=== PATIENT | female | born 1990 | race Caucasian/White ===

== ENCOUNTER → 2022-11-30 09:54 | Outpatient (BNVA) | payer BC, SELFPAY | PROVIDERS: PCP Nurse Practitioner Family; Visit Provider Nurse Practitioner | DX: I10 Essential (primary) hypertension (principal); E28.2 Polycystic ovarian syndrome | CPT/HCPCS: 80053; 80061; 84443; 85025 ==

== ENCOUNTER → 2022-12-10 09:12 | Outpatient (BNVA) | payer BC, MEDICAID, SELFPAY | PROVIDERS: PCP Nurse Practitioner Family; Visit Provider Nurse Practitioner | DX: R79.89 Other specified abnormal findings of blood chemistry (principal) | CPT/HCPCS: 85025 ==

== ENCOUNTER → 2023-01-10 08:13 | Outpatient (BNVA) | payer BC, MEDICAID, SELFPAY | PROVIDERS: PCP Nurse Practitioner Family; Visit Provider Obstetrics & Gynecology | DX: E28.2 Polycystic ovarian syndrome (principal) | CPT/HCPCS: 83525 ==

== ENCOUNTER → 2023-01-24 08:04 | Outpatient (BNVA) | payer BC, MEDICAID, SELFPAY | PROVIDERS: PCP Nurse Practitioner Family; Visit Provider Obstetrics & Gynecology | DX: E28.2 Polycystic ovarian syndrome (principal) | CPT/HCPCS: 83036; 84443 ==

== ENCOUNTER 2023-02-01 12:40 | Emergency (ER) | payer BC, MEDICAID, SELFPAY ==
[2023-02-01] VITALS (7 sets, daily range): BP systolic 136–169; BP diastolic 97–112; PULSE 71–75; RESP 16; TEMP 36.6; O2SAT 96–100; BMI 52.3
--- NOTE | 2023-02-01 14:19 | W.ED.ABDPA2 ---
HPI - Abdominal Pain General: Chief Complaint: Abdominal Pain Stated Complaint: possible urogenital Time Seen by Provider: 02/01/23 14:18 Source: patient Mode of arrival: ambulatory History of Present Illness: 32-year-old female presents emergency room complaining of left lower quadrant abdominal pain has been ongoing since around 10 AM this morning initially was coming and going this become more persistent. She notices it when she lays down prone it actually improves it comes and goes in waves. She denies vomiting or diarrhea no hematochezia melena hematemesis cough tenderness no dysuria urgency or frequency no hematuria. Patient has a history of polycystic ovarian syndrome. MD elicited complaint: abdominal pain Onset (ago): hour(s) Pain Consistency: constant Location: L flank and Pelvis (L) Severity: moderate Quality: cramping and sharp Exacerbating factors: nothing Relieving factors: other (Lying prone) Associated Symptoms: Reports GI cramping and nausea; Denies anorexia, belching, bloating, change in bowel habits, change in stool character, chills, coffee ground emesis, constipation, diarrhea, dyspepsia, dysuria, excessive flatus, fever(s), heartburn, hematochezia, hematuria, hematemesis, fecal incontinence, loose stools, melena, poor appetite, syncope and vomiting Review of Systems Const: Denies: fever(s) or chills ENMT: Denies: throat pain, ear or mastoid pain, nasal discharge or nasal congestion Card: Denies: chest pain or syncope Resp: Denies: dyspnea, productive cough or non-productive cough GI: Reports: abdominal pain, nausea and GI cramping; Denies: vomiting, hematemesis, coffee ground emesis, heartburn, diarrhea, constipation, bloating, belching, excessive flatus, fecal incontinence, change in bowel habits, change in stool character, hematochezia or melena : Denies: dysuria, urinary frequency, urinary urgency or hematuria Skin/Breast: Denies: rash or pruritus PFSH ED PFSH: Medical History Asthma COPD (chronic obstructive pulmonary disease) Hypertension PCOS (polycystic ovarian syndrome) Surgical History Status post tonsillectomy and adenoidectomy Family History Mother Hypertension Diabetes Father Hypertension Diabetes Grandfather Hypertension Diabetes Grandfather Hypertension Diabetes Grandmother Hypertension Diabetes Grandmother Hypertension Diabetes Denies family history of Cervical cancer Ovarian cancer Breast cancer Uterine cancer Thyroid disease Stroke Physical Exam Const: COMMON NORMALS: no acute distress GENERAL APPEARANCE: cooperative and comfortable ORIENTATION/CONSCIOUSNESS: Yes awake, Yes oriented to person, Yes oriented to place and Yes oriented to time HENMT: COMMON NORMALS: normocephalic, atraumatic and hearing grossly normal bilaterally HEAD & SCALP: normocephalic and atraumatic Resp: COMMON NORMALS: normal respiratory effort, No retractions, No use of accessory muscles and clear to auscultation bilaterally AUSCULTATION: clear to auscultation bilaterally Cardio: COMMON NORMALS: regular rate, regular rhythm and No murmurs present (Cardio) RATE: regular rate RHYTHM: regular rhythm GI: COMMON NORMALS: Soft to palpation and No hepatosplenomegaly present AUSCULTATION: Yes normoactive bowel sounds PALPATION: Yes Soft to palpation, No Tenderness to palpation present (GI), No Guarding due to palpation present (GI) and Yes No hepatosplenomegaly present Extremity: COMMON NORMALS: normal to inspection, capillary refill normal, no clubbing, cyanosis or edema, no calf tenderness and no pedal edema Neuro: SENSORIUM/ORIENTATION: Yes oriented to person, Yes oriented to place and Yes oriented to time Skin: COMMON NORMALS: no rashes or lesions noted GENERAL SKIN EXAM: no rashes or lesions noted Course Vital Signs: Vital signs: Vital Signs Temperature 97.9 F 02/01/23 13:18 Pulse Rate 74 02/01/23 17:58 Respiratory Rate 16 02/01/23 13:18 Blood Pressure 169/110 02/01/23 17:58 Pulse Oximetry 100 02/01/23 17:58 Oxygen Delivery Me thod Room Air 02/01/23 13:18 MDM - Abdominal Pain Medical Decision Making CT shows 15 cm ovarian cyst ultrasound there is no ovarian torsion. Patient improved slightly. She has an appointment coming up with Dr. Navarrete in 3 to 4 days. Avoid exertional activities pain medications as needed follow-up with Dr. Navarrete has worsening or changes symptoms return to the emergency room. Labs and imaging reviewed with the patient. Medical Records I reviewed the patient's medical records. Lab Data I reviewed the patient's lab results. 02/01/23 14:38 02/01/23 14:38 Labs/Radiology: Radiology Impressions Abdomen/Pelvis CT 02/01/23 14:41 IMPRESSION: Dominant left adnexal/para ovarian cyst measuring over 15 cm in size. Due to its large size this places patient at risk for ovarian torsion. Therefore, would recommend follow-up ultrasound and surgical consultation would also be advised. Pelvic/Transvag US 02/01/23 16:37 IMPRESSION: Redemonstrated left paraovarian cyst measuring 15 cm in size. No ovarian torsion. Laboratory Results WBC 9.9 10^3/uL (4.0-10.0) 02/01/23 14:38 RBC 5.19 10^6/uL (4.1-5.3) 02/01/23 14:38 Hgb 15.5 g/dL (11.5-15.3) H 02/01/23 14:38 Hct 47.8 % (37.0-47.0) H 02/01/23 14:38 MCV 92.1 fl (81-99) 02/01/23 14:38 MCH 29.9 pg (28.0-34.0) 02/01/23 14:38 MCHC 32.4 g/dL (30.0-36.0) 02/01/23 14:38 RDW 12.9 % (12.1-15.1) 02/01/23 14:38 Plt Count 476 10^3/cmm (130-400) H 02/01/23 14:38 MPV 9.8 fL (7.4-10.4) 02/01/23 14:38 Neut % (Auto) 64.5 % 02/01/23 14:38 Lymph % (Auto) 26.5 % 02/01/23 14:38 [place] % (Auto) 4.0 % 02/01/23 14:38 Eos % (Auto) 4.3 % 02/01/23 14:38 Baso % (Auto) 0.5 % 02/01/23 14:38 Neut # (Auto) 6.40 10^3/uL (1.8-7.7) 02/01/23 14:38 Lymph # (Auto) 2.6 10^3/uL (0.8-4.8) 02/01/23 14:38 [place] # (Auto) 0.4 10^3/uL (0.2-0.9) 02/01/23 14:38 Eos # (Auto) 0.4 10^3/uL (0.0-0.8) 02/01/23 14:38 Baso # (Auto) 0.1 10^3/uL (0.0-0.1) 02/01/23 14:38 Nucleated RBC % (auto) 0 % 02/01/23 14:38 Nucleated RBCs # 0.0 /100WBC 02/01/23 14:38 Sodium 138 mmol/L (136-145) 02/01/23 14:38 Potassium 3.8 mmol/L (3.5-5.1) 02/01/23 14:38 Chloride 101 mmol/L (98-107) 02/01/23 14:38 Carbon Dioxide 25 mmol/L (22-29) 02/01/23 14:38 Anion Gap 15.8 (5-19) 02/01/23 14:38 BUN 12 mg/dL (6-20) 02/01/23 14:38 Creatinine 0.6 mg/dL (0.5-0.9) 02/01/23 14:38 GFR Calculation 116.6 mL/min (90-130) 02/01/23 14:38 Glucose 78 mg/dL (65-115) 02/01/23 14:38 Calculated Osmolality 285 mOsm/kg (285-295) 02/01/23 14:38 Calcium 9.6 mg/dL (8.5-10.5) 02/01/23 14:38 Total Bilirubin 0.3 mg/dL (0.15-1.2) 02/01/23 14:38 AST 32 U/L (0-32) 02/01/23 14:38 ALT 40 U/L (0-33) H 02/01/23 14:38 Alkaline Phosphatase 59 U/L (35-105) 02/01/23 14:38 Total Protein 8.2 g/dL (6.6-8.7) 02/01/23 14:38 Albumin 4.6 g/dL (3.5-5.2) 02/01/23 14:38 Globulin 3.6 g/dL (1.3-4.6) 02/01/23 14:38 Urine Color Yellow (Yellow) 02/01/23 14:25 Urine Appearance Clear (CLEAR) 02/01/23 14:25 Urine pH 5 (5-7) 02/01/23 14:25 Ur Specific [place] 1.015 (1.005-1.030) 02/01/23 14:25 Urine Protein Neg (Negative) 02/01/23 14:25 Urine Glucose (UA) Norm (Normal) 02/01/23 14:25 Urine Ketones Negative (Negative) 02/01/23 14:25 Urine Blood 3+ (Negative) H 02/01/23 14:25 Urine Nitrate Negative (Negative) 02/01/23 14:25 Urine Bilirubin Neg (Negative) 02/01/23 14:25 Urine Urobilinogen Norm mg/dL (Negative) 02/01/23 14:25 Ur Leukocyte Esterase Negative (Negative) 02/01/23 14:25 Urine RBC 5-10 /hpf (0-2) H 02/01/23 14:25 Urine WBC 0-4 /hpf (0-5) H 02/01/23 14:25 Ur Squamous Epith Cells 15-25 /hpf (0-5) H 02/01/23 14:25 Amorphous Sediment Not Reportable 02/01/23 14:25 Urine Bacteria Trace /hpf (NONE) 02/01/23 14:25 Discharge Plan Discharge Patient Disposition: Home Clinical Impression: Cyst of left ovary Condition: Stable Prescriptions: New hydrocodone-acetaminophen 5-325 mg tablet 1 tab PO Q6H PRN (Reason: pain) Qty: 20 0RF ondansetron HCl 4 mg tablet 4 mg PO Q6H PRN (Reason: nausea and vomiting) Qty: 20 0RF No Action promethazine-DM 6.25-15 mg/5 mL syrup 5 ml PO Q6H PRN (Reason: cough) Qty: 473 0RF medroxyprogesterone [Provera] 10 mg tablet 10 mg PO DAILY Qty: 30 5RF Rx Instructions: Take 1-10th of month. NOT STARTED OF 02/01/23 Aleve 220 mg Tablet 440 - 880 mg PO DAILY PRN (Reason: Pain) spironolactone 100 mg tablet 100 mg PO QAM lisinopril 10 mg tablet 10 mg PO QAM metformin 500 mg tablet extended release 24 hr See Rx Instructions .ROUTE .COMPLEX Rx Instructions: Take one tab (500mg) daily, then increase to 2 tabs (1,000mg) daily after 30 days Combivent Respimat 20-100 mcg/actuation mist 1 puff inhalation QID PRN (Reason: Shortness Of Breath) Discharge Orders: Discharge ED (Routine); Ordered 02/01/23 Ordered By: Archie Melton Referrals: Emely Rivera FNP [Primary Care Provider] - Discharge Diet: Usual diet Discharge Activity: Limit activity as instructed Patient Instructions: Opioid Safety, Pain Management Activity Restrictions/Additional Instructions: You are seen today for pelvic pain there is a large left ovarian cyst. Keep your appoint with Dr. Navarrete as scheduled for worsening symptoms return avoid any exertional activities you can use the hydrocodone for pain as needed. Coding Level of Care Code ED [employer] T[employer] Helper for Imer Trejo
[2023-02-01] MEDS: sodium chloride 0.9% 1,000 ML 999 ML IV (14:40)
--- NOTE | 2023-02-01 14:41 | CTR_ITS ---
PROCEDURE INFORMATION: Exam: CT Abdomen And Pelvis Without Contrast Exam date and time: 02/01/2023 4:07 PM Age: 32 years old Clinical indication: Abdominal tenderness; Additional info: Flank pain TECHNIQUE: Imaging protocol: Computed tomography of the abdomen and pelvis without contrast. Radiation optimization: All CT scans at this facility use at least one of these dose optimization techniques: automated exposure control; mA and/or kV adjustment per patient size (includes targeted exams where dose is matched to clinical indication); or iterative reconstruction. REPORTING DATA: Count of CT and Cardiac NM exams in prior 12 months: This patient has received 0 known CTs and 0 known cardiac nuclear medicine studies in the 12 months prior to the current study. COMPARISON: No relevant prior studies available. RADIATION DOSE METRICS: Total DLP (mGy-cm): 1278.63 FINDINGS: Liver: Normal. No mass. Gallbladder and bile ducts: Normal. No calcified stones. No ductal dilation. Pancreas: Normal. No ductal dilation. Spleen: Normal. No splenomegaly. Adrenal glands: Normal. No mass. Kidneys and ureters: Normal. No hydronephrosis. Stomach and bowel: Unremarkable. No obstruction. No mucosal thickening. Appendix: No evidence of appendicitis. Intraperitoneal space: Unremarkable. No free air. No significant fluid collection. Vasculature: Unremarkable. No abdominal aortic aneurysm. Lymph nodes: Unremarkable. No enlarged lymph nodes. Urinary bladder: Unremarkable as visualized. Reproductive: There is a dominant left adnexal/para ovarian simple appearing cyst measuring 15.5 x 12.6 x 14.6 cm. Bones/joints: No acute fracture. Soft tissues: Unremarkable. CT/CT kidney stone [id number] IMPRESSION: Dominant left adnexal/para ovarian cyst measuring over 15 cm in size. Due to its large size this places patient at risk for ovarian torsion. Therefore, would recommend follow-up ultrasound and surgical consultation would also be advised.
[2023-02-01] MEDS: ondansetron 2 mg/ML SDV 2 mL 4 MG IVP (14:42)
[2023-02-01 14:48] LABS: Basophils # 0.1 10^3/uL (0.0-0.1); Basophils % 0.5 %; Eosinophils # 0.4 10^3/uL (0.0-0.8); Eosinophils % 4.3 %; Hematocrit 47.8 % (37.0-47.0); Hemoglobin 15.5 g/dL (11.5-15.3); Lymphocytes # 2.6 10^3/uL (0.8-4.8); Lymphocytes % 26.5 %; Mean Corpuscular HGB Conc 32.4 g/dL (30.0-36.0); Mean Corpuscular Hemoglobin 29.9 pg (28.0-34.0); Mean Corpuscular Volume 92.1 fl (81-99); Mean Platelet Volume 9.8 fL (7.4-10.4); Monocytes # 0.4 10^3/uL (0.2-0.9); Neutrophils % 64.5 %; Nucleated Red Blood Cells % 0 %; Platelet Count 476 10^3/cmm (130-400); Red Blood Count 5.19 10^6/uL (4.1-5.3); Red Cell Distribution Width 12.9 % (12.1-15.1); White Blood Count 9.9 10^3/uL (4.0-10.0)
[2023-02-01 15:15] LABS: Alanine Aminotransferase 40 U/L (0-33); Albumin Level 4.6 g/dL (3.5-5.2); Alkaline Phosphatase 59 U/L (35-105); Anion Gap 15.8 (5-19); Aspartate Amino Transferase 32 U/L (0-32); Blood Urea Nitrogen 12 mg/dL (6-20); Calcium 9.6 mg/dL (8.5-10.5); Carbon Dioxide 25 mmol/L (22-29); Chloride 101 mmol/L (98-107); Globulin 3.6 g/dL (1.3-4.6); Glomerular Filtration Rate 116.6 mL/min (90-130); Glucose 78 mg/dL (65-115); Osmolality Calculated 285 mOsm/kg (285-295); Potassium 3.8 mmol/L (3.5-5.1); Sodium 138 mmol/L (136-145); Total Bilirubin 0.3 mg/dL (0.15-1.2); Total Protein 8.2 g/dL (6.6-8.7)
[2023-02-01 15:15] LABS: Add Urine Microscopic? YES; Bilirubin Urine Neg (Negative); Blood Urine 3+ (Negative); Glucose Urine UA Norm (Normal); Ketones Urine Negative (Negative); Leukocyte Esterase Urine Negative (Negative); Nitrate Urine Negative (Negative); Protein Urine Neg (Negative); Specific Gravity, Urine 1.015 (1.005-1.030); Urine Appearance Clear (CLEAR); Urine Color Yellow (Yellow); Urobilinogen Urine Norm (Negative); pH Urine 5 (5-7)
[2023-02-01 15:16] LABS: Add Urine Culture? No; Bacteria Urine TRACE /hpf; Squamous Epithelial Cell Urine 15-25 /hpf (0-5); WBC Urine 0-4 /hpf (0-5)
--- NOTE | 2023-02-01 16:37 | USR_ITS ---
PROCEDURE INFORMATION: Exam: US Pelvis Limited, Transabdominal and US Pelvis, Transvaginal Exam date and time: 02/01/2023 4:52 PM Age: 32 years old Clinical indication: Pelvic pain; Additional info: 15 cm left ovarian cyst? Ovarian torsion TECHNIQUE: Imaging protocol: Real-time transabdominal and transvaginal pelvic ultrasound (limited) with image documentation. Transvaginal imaging was used for better evaluation of the endometrium, adnexa, and/or cervix. COMPARISON: CT kidney stone [id number] 02/01/2023 4:07 PM FINDINGS: Uterus: Limited visualization due to overlying bowel gas/soft tissues. Right ovary/adnexa: Right ovary not visualized on exam. Left ovary/adnexa: Redemonstrated left simple appearing paraovarian cyst measuring up to 15 cm in size. Normal blood flow to the left ovary. Other findings: Please note, on ultrasound examination the cyst is labeled right ovary. On CT, it is better visualized that the cyst is within the left adnexa/paraovarian in origin. US/US pelvis lmt w transvag IMPRESSION: Redemonstrated left paraovarian cyst measuring 15 cm in size. No ovarian torsion.
[2023-02-01] MEDS: HYDROmorphone 1 mg/mL INJ 1 mL 0.5 MG IVP (17:29)
[2023-02-01] MEDS: diphenhydrAMINE 50 mg/mL SDV 1mL 25 MG IVP (17:29)
== END 2023-02-01 18:01 | disposition home or self-care (01) ==
PROVIDERS: Emergency Provider Family Medicine; PCP Nurse Practitioner
DX: N83.202 Unspecified ovarian cyst, left side (principal)
CPT/HCPCS: 74176; 76830; 76857; 80053; 81001; 85025; 96361; 96374; 96375; 99285; J1170; J1200; J2405; J7030

== ENCOUNTER 2023-02-11 09:06 | Observation (INO) | payer BC, MEDICAID, SELFPAY ==
[2023-02-11] VITALS (17 sets, daily range): BP systolic 124–198; BP diastolic 76–132; PULSE 64–107; RESP 12–20; TEMP 36.6–36.8; O2SAT 94–100
--- NOTE | 2023-02-11 09:19 | US_ITS ---
WS: [id number] US transvaginal [id number] HISTORY: ovarian cyst COMPARISON: Pelvic ultrasound 02/01/[address] 02/01/2023 Uterus: 6.8 cm x 5.0 cm x 4.0 cm. Normal size retroverted uterus. No fibroid or mass identified. Endometrium: 0.9 cm. Normal. Right ovary: 3.6 cm x 2.9 cm x 2.4 cm. Normal size and vascularity, no cystic or solid masses. Normal size with small peripheral follicles. Normal vascularity. Left ovary: 5.6 cm x 4.0 cm x 5.3 cm. Mildly enlarged ovary. Ovary is of variable echogenicity. There is increased echogenicity centrally with small peripheral follicles being displaced. The previously described LEFT adnexal cystic mass is not identified. There is no vascularity or color Doppler. Free fluid in the pelvis is more than physiologic. There is also additional free fluid in the LEFT up per quadrant. US/US transvaginal [id number] IMPRESSION: 1. The large adnexal cystic mass described on 02/01/2023 is not identified today . 2. Increase fluid in the pelvis and also LEFT upper quadrant. Fluid is from th e acutely ruptured ovarian cyst. 3. Enlarged heterogeneous LEFT ovary with normal vascularity. Consistent with ovarian torsion. Notified Archie Melton DO at 02/11/2023 11:48 AM.
[2023-02-11] MEDS: diphenhydrAMINE 50 mg/mL SDV 1mL IVP (10:00)
[2023-02-11] MEDS: morphine 4 mg/mL SDV 1 mL 6 MG IVP ×2 (10:00→12:19)
[2023-02-11 10:03] LABS: Basophils % 0.4 %; Eosinophils # 0.1 10^3/uL (0.0-0.8); Eosinophils % 0.5 %; Hematocrit 50.7 % (37.0-47.0); Hemoglobin 16.5 g/dL (11.5-15.3); Lymphocytes # 1.5 10^3/uL (0.8-4.8); Lymphocytes % 13.1 %; Mean Corpuscular HGB Conc 32.5 g/dL (30.0-36.0); Mean Corpuscular Hemoglobin 29.8 pg (28.0-34.0); Mean Corpuscular Volume 91.5 fl (81-99); Mean Platelet Volume 10.1 fL (7.4-10.4); Monocytes # 0.3 10^3/uL (0.2-0.9); Monocytes % 2.9 %; Neutrophils # 9.17 10^3/uL (1.8-7.7); Neutrophils % 82.7 %; Nucleated Red Blood Cells % 0 %; Platelet Count 512 10^3/cmm (130-400); Red Blood Count 5.54 10^6/uL (4.1-5.3); Red Cell Distribution Width 12.9 % (12.1-15.1); White Blood Count 11.1 10^3/uL (4.0-10.0)
[2023-02-11 10:20] LABS: Alanine Aminotransferase 32 U/L (0-33); Albumin Level 4.6 g/dL (3.5-5.2); Alkaline Phosphatase 61 U/L (35-105); Blood Urea Nitrogen 19 mg/dL (6-20); Calcium 10.5 mg/dL (8.5-10.5); Carbon Dioxide 23 mmol/L (22-29); Chloride 97 mmol/L (98-107); Globulin 3.8 g/dL (1.3-4.6); Glomerular Filtration Rate 97.6 mL/min (90-130); Glucose 110 mg/dL (65-115); HCG, Serum Qual Negative (Negative); Osmolality Calculated 279 mOsm/kg (285-295); Sodium 133 mmol/L (136-145); Total Bilirubin 0.3 mg/dL (0.15-1.2); Total Protein 8.4 g/dL (6.6-8.7)
--- NOTE | 2023-02-11 10:23 | ED_ITS ---
HPI - Abdominal Pain General: Chief Complaint: Abdominal Pain Stated Complaint: ovarian pain Time Seen by Provider: 02/11/23 09:11 Source: patient Mode of arrival: ambulatory History of Present Illness: 32-year-old female presents to the emergency room with left-sided pelvic pain. She was seen on February 01 at that time she was having pelvic discomfort CT and ultrasound showed a 15 cm ovarian cyst with good blood flow to the ovary. She is given pain medication and referred to gynecology gynecology has seen her and has scheduled surgery in 2 days. She returns today complaining of worsening left-sided pelvic pain. She denies dysuria urgency or frequency or hematuria. Has been nauseous but no vomiting. MD elicited complaint: other (Left pelvic pain) Pertinent past history: other (Ovarian cyst 15 cm) Onset (ago): hour(s) Pain Consistency: constant Location: Pelvis Severity: severe Quality: cramping Exacerbating factors: movement Relieving factors: rest Associated Symptoms: Denies anorexia, belching, bloating, change in bowel habits, change in stool character, chills, coffee ground emesis, constipation, GI cramping, diarrhea, dyspepsia, dysuria, excessive flatus, fever(s), heartburn, hematochezia, hematuria, hematemesis, fecal incontinence, loose stools, melena, nausea, poor appetite, syncope and vomiting Review of Systems Const: Denies: fever(s) or chills ENMT: Denies: throat pain, ear or mastoid pain, nasal discharge or nasal congestion Card: Denies: syncope Resp: Denies: dyspnea, productive cough or non-productive cough GI: Denies: nausea, vomiting, hematemesis, coffee ground emesis, heartburn, diarrhea, constipation, bloating, GI cramping, belching, excessive flatus, fecal incontinence, change in bowel habits, change in stool character, hematochezia or melena : Denies: dysuria, urinary frequency, urinary urgency or hematuria Skin/Breast: Denies: rash or pruritus PFSH ED PFSH: Medical History Asthma COPD (chronic obstructive pulmonary disease) Hypertension PCOS (polycystic ovarian syndrome) Surgical History Status post tonsillectomy and adenoidectomy Family History Mother Hypertension Diabetes Father Hypertension Diabetes Grandfather Hypertension Diabetes Grandfather Hypertension Diabetes Grandmother Hypertension Diabetes Grandmother Hypertension Diabetes Denies family history of Cervical cancer Ovarian cancer Breast cancer Uterine cancer Thyroid disease Stroke Physical Exam Const: GENERAL APPEARANCE: cooperative and comfortable ORIENTATION/CONSCIOUSNESS: Yes awake, Yes oriented to person, Yes oriented to place and Yes oriented to time HENMT: COMMON NORMALS: normocephalic, atraumatic and hearing grossly normal bilaterally HEAD & SCALP: normocephalic and atraumatic Resp: COMMON NORMALS: normal respiratory effort, No retractions, No use of accessory muscles and clear to auscultation bilaterally AUSCULTATION: clear to auscultation bilaterally Cardio: COMMON NORMALS: regular rate, regular rhythm and No murmurs present (Cardio) RATE: regular rate RHYTHM: regular rhythm GI: COMMON NORMALS: No hepatosplenomegaly present AUSCULTATION: Yes normoac tive bowel sounds PALPATION: Yes Tenderness to palpation present (GI) Det ails: LLQ, No Guarding due to palpation present (GI) and Yes No hepatosplenomegaly present : COMMON NORMALS: Yes no CVA tenderness BLADDER/KIDNEY EXAM: Yes no CVA tenderness Back/Pelvis: COMMON NORMALS: no CVA tenderness Extremity: COMMON NORMALS: normal to inspection, capillary refill normal, no clubbing, cyanosis or edema, no calf tenderness and no pedal edema Neuro: SENSORIUM/ORIENTATION: Yes oriented to person, Yes oriented to place and Yes oriented to time Skin: COMMON NORMALS: no rashes or lesions noted GENERAL SKIN EXAM: no rashes or lesions noted Course Vital Signs: Vital signs: Vital Signs Temperature 97.9 F 02/11/23 09:14 Pulse Rate 100 02/11/23 14:26 Respiratory Rate 16 02/11/23 14:26 Blood Pressure 179/126 02/11/23 14:26 Pulse Oximetry 99 02/11/23 14:26 Oxygen Delivery Me thod Room Air 02/11/23 14:26 MDM - Abdominal Pain Medical Decision Making No blood flow in the ovary cyst is no longer present fluid in the pelvis suspect cyst has ruptured and the ovary is now torsed discussed with gynecology Dr. Johnston will admit to [facility] [facility] floor. Pain medications given. Orders written. Medical Records I reviewed the patient's medical records. Lab Data I reviewed the patient's lab results. 02/11/23 09:54 02/11/23 09:54 Labs/Radiology: Radiology Impressions Transvaginal US 02/11/23 09:19 IMPRESSION: 1. The large adnexal cystic mass described on 02/01/2023 is not identified today. 2. Increase fluid in the pelvis and also LEFT upper quadrant. Fluid is from the acutely ruptured ovarian cyst. 3. Enlarged heterogeneous LEFT ovary with normal vascularity. Consistent with ovarian torsion. Notified Archie Melton DO at 02/11/2023 11:48 AM. ADDENDUM: 02/11/23 1238 IMPRESSION: 3. Enlarged heterogeneous LEFT ovary with ABNORMAL vascularity. Consistent with ovarian torsion. Laboratory Results WBC 11.1 10^3/uL (4.0-10.0) H 02/11/23 09:54 RBC 5.54 10^6/uL (4.1-5.3) H 02/11/23 09:54 Hgb 16.5 g/dL (11.5-15.3) H 02/11/23 09:54 Hct 50.7 % (37.0-47.0) H 02/11/23 09:54 MCV 91.5 fl (81-99) 02/11/23 09:54 MCH 29.8 pg (28.0-34.0) 02/11/23 09:54 MCHC 32.5 g/dL (30.0-36.0) 02/11/23 09:54 RDW 12.9 % (12.1-15.1) 02/11/23 09:54 Plt Count 512 10^3/cmm (130-400) H 02/11/23 09:54 MPV 10.1 fL (7.4-10.4) 02/11/23 09:54 Neut % (Auto) 82.7 % 02/11/23 09:54 Lymph % (Auto) 13.1 % 02/11/23 09:54 [place] % (Auto) 2.9 % 02/11/23 09:54 Eos % (Auto) 0.5 % 02/11/23 09:54 Baso % (Auto) 0.4 % 02/11/23 09:54 Neut # (Auto) 9.17 10^3/uL (1.8-7.7) H 02/11/23 09:54 Lymph # (Auto) 1.5 10^3/uL (0.8-4.8) 02/11/23 09:54 [place] # (Auto) 0.3 10^3/uL (0.2-0.9) 02/11/23 09:54 Eos # (Auto) 0.1 10^3/uL (0.0-0.8) 02/11/23 09:54 Baso # (Auto) 0.0 10^3/uL (0.0-0.1) 02/11/23 09:54 Nucleated RBC % (auto) 0 % 02/11/23 09:54 Nucleated RBCs # 0.0 /100WBC 02/11/23 09:54 Sodium 133 mmol/L (136-145) L 02/11/23 09:54 Potassium 4.7 mmol/L (3.5-5.1) 02/11/23 09:54 Chloride 97 mmol/L (98-107) L 02/11/23 09:54 Carbon Dioxide 23 mmol/L (22-29) 02/11/23 09:54 Anion Gap 17.7 (5-19) 02/11/23 09:54 BUN 19 mg/dL (6-20) 02/11/23 09:54 Creatinine 0.7 mg/dL (0.5-0.9) 02/11/23 09:54 GFR Calculation 97.6 mL/min (90-130) 02/11/23 09:54 Glucose 110 mg/dL (65-115) 02/11/23 09:54 Calculated Osmolality 279 mOsm/kg (285-295) L 02/11/23 09:54 Calcium 10.5 mg/dL (8.5-10.5) 02/11/23 09:54 Total Bilirubin 0.3 mg/dL (0.15-1.2) 02/11/23 09:54 AST 24 U/L (0-32) 02/11/23 09:54 ALT 32 U/L (0-33) 02/11/23 09:54 Alkaline Phosphatase 61 U/L (35-105) 02/11/23 09:54 Total Protein 8.4 g/dL (6.6-8.7) 02/11/23 09:54 Albumin 4.6 g/dL (3.5-5.2) 02/11/23 09:54 Globulin 3.8 g/dL (1.3-4.6) 02/11/23 09:54 HCG, Qual Negative (Negative) 02/11/23 09:54 Urine Color Yellow (Yellow) 02/11/23 10:30 Urine Appearance Sl hazy (CLEAR) A 02/11/23 10:30 Urine pH 5 (5-7) 02/11/23 10:30 Ur Specific [place] 1.025 (1.005-1.030) 02/11/23 10:30 Urine Protein Neg (Negative) 02/11/23 10:30 Urine Glucose (UA) Norm (Normal) 02/11/23 10:30 Urine Ketones Negative (Negative) 02/11/23 10:30 Urine Blood 2+ (Negative) H 02/11/23 10:30 Urine Nitrate Negative (Negative) 02/11/23 10:30 Urine Bilirubin Neg (Negative) 02/11/23 10:30 Urine Urobilinogen Norm mg/dL (Negative) 02/11/23 10:30 Ur Leukocyte Esterase Negative (Negative) 02/11/23 10:30 Urine RBC 0-4 /hpf (0-2) H 02/11/23 10:30 Urine WBC 5-10 /hpf (0-5) H 02/11/23 10:30 Ur Squamous Epith Cells 15-25 /hpf (0-5) H 02/11/23 10:30 Amorphous Sediment Not Reportable 02/11/23 10:30 Urine Bacteria 2+ /hpf (NONE) H 02/11/23 10:30 Discharge Plan Discharge Patient Disposition: Admitted As Inpatient Admit Provider: Abraham Johnston Clinical Impression: Ovarian torsion, Ovarian cyst rupture Condition: Stable Coding Level of Care Code ED Cash Management Clerk for Imer Trejo
[2023-02-11 10:25] LABS: Anion Gap 17.7 (5-19); Aspartate Amino Transferase 24 U/L (0-32); Potassium 4.7 mmol/L (3.5-5.1)
[2023-02-11 10:59] LABS: Add Urine Culture? No; Add Urine Microscopic? YES; Bacteria Urine 2+ /hpf; Bilirubin Urine Neg (Negative); Blood Urine 2+ (Negative); Glucose Urine UA Norm (Normal); Ketones Urine Negative (Negative); Leukocyte Esterase Urine Negative (Negative); Nitrate Urine Negative (Negative); Protein Urine Neg (Negative); RBC Urine 0-4 /hpf (0-2); Specific Gravity, Urine 1.025 (1.005-1.030); Squamous Epithelial Cell Urine 15-25 /hpf (0-5); Urine Appearance SL Hazy (CLEAR); Urine Color Yellow (Yellow); Urobilinogen Urine Norm (Negative); pH Urine 5 (5-7)
--- NOTE | 2023-02-11 14:04 | ANES.PREANE2 ---
Pre-Anesthetic Assessment Height/Weight: Height 1.63 m Weight 135.171 kg Temp Pulse Resp BP Pulse Ox O2 Del Method 97.9 F 83 18 198/101 98 Room Air 02/11/23 09:14 02/11/23 13:10 02/11/23 13:10 02/11/23 13:10 02/11/23 13:10 02/11/23 09:14 Preop Diagnosis: paraovarian cyst Operation Date: 02/11/23 15:15 Proposed Procedures p Laparoscopy Diagnostic(Not Applicable) - Oksana Navarrete MD s possible Laparoscopic Salpingo Oophorectomy(Not Applicable) - Oksana Navarrete MD Familial anesthetic complications: none Was Beta Masoud taken within 24 hours: N/A Was Clonidine taken within 24 hours: N/A Social No alcohol and No tobacco Exam alert, oriented x 3, clear to auscultation bilaterally and regular rate & rhythm Airway Submandibular: within normal limits Cervical ROM: within normal limits Mallampati: Class II Dentition: chipped Comments: Comments: Caries CV/HEM Hypertension Metabolic Morbid Obesity Anesthetic Plan ASA status: 2E Anesthesia: General Medications/Allergies Home Medications Medication Instructions Recorded Confirmed Last Taken Type promethazine-DM 6.25 mg-15 mg/5 mL 5 ml PO Q6H PRN cough #473 mL 11/29/22 02/11/23 Unknown Rx oral syrup medroxyprogesterone 10 mg tablet 10 mg PO DAILY #30 tabs 01/26/23 02/11/23 Unknown Rx (Provera) hydrocodone 5 mg-acetaminophen 325 1 tab PO Q6H PRN pain #20 tabs 02/01/23 02/11/23 02/11/23 Rx mg tablet ipratropium 20 mcg-albuterol 100 1 puff inhalation QID PRN 02/01/23 02/11/23 Unknown History mcg/actuation mist for inhalation Shortness Of Breath (Combivent Respimat) lisinopril 10 mg tablet 10 mg PO QAM 02/01/23 02/11/23 02/10/23 History metformin 500 mg tablet,extended See Rx Instructions .Route .COMPLEX 02/01/23 02/11/23 02/11/23 History release 24 hr naproxen sodium 220 mg tablet 440 - 880 mg PO DAILY PRN Pain 02/01/23 02/11/2323 06:50 History (Aleve) 4 tabs ondansetron HCl 4 mg tablet 4 mg PO Q6H PRN nausea and 02/01/23 02/11/23 Unknown Rx vomiting #20 tabs spironolactone 100 mg tablet 100 mg PO QAM 02/01/23 02/11/23 02/10/23 History Allergies Allergy/AdvReac Type Severity Reaction Status Date / Time morphine Allergy ALGY-Rash Verified 02/11/23 09:23 Penicillins Allergy rash Verified 02/11/23 09:23 bee venom protein (honey bee) Allergy rash Uncoded 02/11/23 09:23 hornet venom Allergy rash Uncoded 02/11/23 09:23 venom-wasp protein Allergy rash Uncoded 02/11/23 09:23 PFSH Anesthesia Medical History Asthma COPD (chronic obstructive pulmonary disease) Hypertension PCOS (polycystic ovarian syndrome) Surgical History Status post tonsillectomy and adenoidectomy Family History Mother Hypertension Diabetes Father Hypertension Diabetes Grandfather Hypertension Diabetes Grandfather Hypertension Diabetes Grandmother Hypertension Diabetes Grandmother Hypertension Diabetes Denies family history of Cervical cancer Ovarian cancer Breast cancer Uterine cancer Thyroid disease Stroke Female Reproductive History Date of last menstrual period: 02/09/23 Data Anesthesia 02/11/23 09:54 02/11/23 09:54 Short CBC 02/11/23 Range/Units 09:54 WBC 11.1 H (4.0-10.0) 10^3/uL Hgb 16.5 H (11.5-15.3) g/dL Hct 50.7 H (37.0-47.0) % MCV 91.5 (81-99) fl Plt Count 512 H (130-400) 10^3/cmm Neut % (Auto) 82.7 % Neut # (Auto) 9.17 H (1.8-7.7) 10^3/uL BMP 02/11/23 09:54 Sodium 133 L Potassium 4.7 Chloride 97 L Carbon Dioxide 23 BUN 19 Creatinine 0.7 Glucose 110 Calcium 10.5 Liver Function 02/11/23 Range/Units 09:54 Total Bilirubin 0.3 (0.15-1.2) mg/dL AST 24 (0-32) U/L ALT 32 (0-33) U/L Alkaline Phosphatase 61 (35-105) U/L Albumin 4.6 (3.5-5.2) g/dL Urine 02/11/23 Range/Units 10:30 Urine Color Yellow (Yellow) Urine Appearance Sl hazy A (CLEAR) Urine pH 5 (5-7) Ur Specific [place] 1.025 (1.005-1.030) Urine Protein Neg (Negative) Urine Glucose (UA) Norm (Normal) Urine Ketones Negative (Negative) Urine Nitrate Negative (Negative) Urine Bilirubin Neg (Negative) Ur Leukocyte Esterase Negative (Negative) Urine RBC 0-4 H (0-2) /hpf Urine WBC 5-10 H (0-5) /hpf Cardiac Studies: No Data to Display
--- NOTE | 2023-02-11 14:06 | W.PM.OPSUD ---
Surgery/Procedure H&P Update DATE OF PROCEDURE: February 11, 2023 DATE H&P PERFORMED: 02/06/23 CHANGES TO PREVIOUS DOCUMENTATION: The patient was scheduled to have a 15 cm mass removed in two days. The cyst has now ruptured and the ovary is torsed. She will be having an emergent laparoscopy with correction of the ovarian torsion. PREOP DIAGNOSIS: ovarian torsion PLANNED PROCEDURE: Operation Date: 02/11/23 15:15 Proposed Procedures p Laparoscopy Diagnostic(Not Applicable) - Oksana Navarrete MD s possible Laparoscopic Salpingo Oophorectomy(Not Applicable) - Oksana Navarrete MD Related Problem List Diagnoses (1) Ovarian torsion:
[2023-02-11] MEDS: CELEcoxib 200 mg Capsule 400 MG PO (14:18)
[2023-02-11] MEDS: phenazopyridine 100 mg Tablet 200 MG PO (14:18)
[2023-02-11] MEDS: scopolamine 1.5 Patch 1 PATCH TRANSDERMA (14:19)
[2023-02-11] MEDS: gabapentin 300 mg Capsule PO (14:19)
[2023-02-11] MEDS: acetaminophen 1,000 MG/100 ML PIGGYBACK 400 MG IV (14:28)
[2023-02-11] MEDS: sodium chloride 0.9% 1,000 ML 30 ML IV (14:28)
[2023-02-11] MEDS: ceFAZolin 3,000 MG in sodium chloride 0.9% (100 ml) 100 ML 200 MG IV (14:50)
--- NOTE | 2023-02-11 17:13 | P.OP_ITS ---
Operative Report Date of procedure: February 11, 2023 Pre-op diagnosis: Preop Diagnosis ovarian torsion Post-op diagnosis: same Post-op findings: large ovarian cyst with torsion. Procedure done: laparoscopic left oophorectomy Specimens removed/disposition: left ovary to pathology Surgeon: Oksana Navarrete Anesthesia: General Estimated blood loss (mL): 50 IV fluids (mL): 1,000 Urine output (mL): 50 Complications: none Condition: stable Disposition: PACU Brief History: The patient was found last week to have a 15 cm cyst. She was scheduled to have it removed in 2 days. Early this morning, she had intense pain and was found to have an ovarian torsion. She was taken for emergency surgery. Procedure: The patient was taken to the operating room where general anesthesia was administered and found to be adequate. She was prepped and draped in the normal sterile fashion in the dorsal lithotomy position in [facility]. A weighted speculum was placed into the vagina and the anterior lip of the cervix grasped with a single-tooth tenaculum. A ZUMI uterine manipulator was placed. A Huerta catheter was placed. The weighted speculum was removed. Attention was turned to the abdomen after the gloves were changed. A 5 mm incision was made at [place] point. The veres needle was inserted and intraabdominal placement was confirmed with a hanging drop. The abdomen was insufflated and the 5 mm trocar placed. The pelvis was visualized and found to have a large cyst occupying most of the pelvis. It was more to the right. There was an enlarged ovary adjacent to it. 3 additional 5 mm ports were placed. One on the right and 1 on the left lower abdomen. An addition al port was plaed supraumbilical. These were placed under direct visualization. The uterus was elevated out of the pelvis and the entire pelvis visualized. The uterus appeared to be normal. The right adnexa appeared to be normal. The left adnexa appeared to be where the enlarged ovarian cyst were arising from. Using the laparoscopic needle and syringe the cyst was aspirated. The suction copier field service technician was then placed through the trocar and the remainder of the cyst was suctioned. Then the ovary was positioned so that I could cauterize the uterine ovarian ligament. The ovary and tube were then removed. The ovary due to its large size and risk of recurrent torsion. The left lower quadrant incision was expanded to 12 mm and an Endobag placed through the trocar. Ovary and cyst wall were then grasped and placed into the bag. It filled the bag I took a quick look around the pelvis there was no bleeding any blood from the pelvis was suction. The left lower quadrant incision was extended to about 4 cm as well as the fascia. The string was brought through the large incision however it kept breaking. Was able to go back laparoscopically and grab the string and then gr abbed the top of the bag and extend the incision even further and the fascia and finally removed. The fascia was closed with 0 Vicryl in a running fashion. The subcutaneous tissue was reapproximated with 3-0 Vicryl. The skin was closed with 3-0 Vicryl The trochars were removed and the abdomen desufflated. The uterine manipulator was removed as well as the Huerta catheter. The incisions were injected with 10 ml of 1/4 percent marcaine The patient tolerated the procedure well. Sponge lap and needle counts were correct x3. Taken to the recovery room in stable condition.
--- NOTE | 2023-02-11 17:38 | PM.DCS ---
Discharge Providers Date of Admission: 02/11/23 12:10 Date of Discharge: February 11, 2023 Attending Provider at Admission: Oksana Navarrete MD Attending Provider at Discharge: Oksana Navarrete MD Primary Care Provider: Emely Rivera APN Diagnoses at Discharge Discharge Diagnosis (1) Ovarian torsion: Status: Acute Reason for Visit Reason for Visit: ovarian pain Hospital Course Hospital Course The patient was admitted from the ER for ovarian torsion. She underwent laparoscopic oophorectomy. She did well postoperatively and was ready for discharge. Pain medication was sent to her pharmacy and her was instructed to pick it up prior to discharge. Physical Exam Urinary Catheter Management: Huerta: Cath Placed During This Visit: yes Urinary Catheter Date of Insertion: 02/11/23 Urinary Catheter Time of Insertion: 14:57 Discharge Data Studies Completed and Pending Completed Studies During Hospitalization Category Date Time Status US transvaginal [id number] Stat Ultrasound 02/11/23 09:19 Completed Pending at discharge Category Date Time Status ES surgery / GI images Routine Exams 02/11/23 15:21 Ordered Urine Culture Routine Lab 02/11/23 14:57 Received Radiology Impressions Transvaginal US 02/11/23 09:19 IMPRESSION: 1. The large adnexal cystic mass described on 02/01/2023 is not identified today. 2. Increase fluid in the pelvis and also LEFT upper quadrant. Fluid is from the acutely ruptured ovarian cyst. 3. Enlarged heterogeneous LEFT ovary with normal vascularity. Consistent with ovarian torsion. Notified Archie Melton DO at 02/11/2023 11:48 AM. ADDENDUM: 02/11/23 1238 IMPRESSION: 3. Enlarged heterogeneous LEFT ovary with ABNORMAL vascularity. Consistent with ovarian torsion. Laboratory Results WBC 11.1 10^3/uL (4.0-10.0) H 02/11/23 09:54 RBC 5.54 10^6/uL (4.1-5.3) H 02/11/23 09:54 Hgb 16.5 g/dL (11.5-15.3) H 02/11/23 09:54 Hct 50.7 % (37.0-47.0) H 02/11/23 09:54 MCV 91.5 fl (81-99) 02/11/23 09:54 MCH 29.8 pg (28.0-34.0) 02/11/23 09:54 MCHC 32.5 g/dL (30.0-36.0) 02/11/23 09:54 RDW 12.9 % (12.1-15.1) 02/11/23 09:54 Plt Count 512 10^3/cmm (130-400) H 02/11/23 09:54 MPV 10.1 fL (7.4-10.4) 02/11/23 09:54 Neut % (Auto) 82.7 % 02/11/23 09:54 Lymph % (Auto) 13.1 % 02/11/23 09:54 [place] % (Auto) 2.9 % 02/11/23 09:54 Eos % (Auto) 0.5 % 02/11/23 09:54 Baso % (Auto) 0.4 % 02/11/23 09:54 Neut # (Auto) 9.17 10^3/uL (1.8-7.7) H 02/11/23 09:54 Lymph # (Auto) 1.5 10^3/uL (0.8-4.8) 02/11/23 09:54 [place] # (Auto) 0.3 10^3/uL (0.2-0.9) 02/11/23 09:54 Eos # (Auto) 0.1 10^3/uL (0.0-0.8) 02/11/23 09:54 Baso # (Auto) 0.0 10^3/uL (0.0-0.1) 02/11/23 09:54 Nucleated RBC % (auto) 0 % 02/11/23 09:54 Nucleated RBCs # 0.0 /100WBC 02/11/23 09:54 Sodium 133 mmol/L (136-145) L 02/11/23 09:54 Potassium 4.7 mmol/L (3.5-5.1) 02/11/23 09:54 Chloride 97 mmol/L (98-107) L 02/11/23 09:54 Carbon Dioxide 23 mmol/L (22-29) 02/11/23 09:54 Anion Gap 17.7 (5-19) 02/11/23 09:54 BUN 19 mg/dL (6-20) 02/11/23 09:54 Creatinine 0.7 mg/dL (0.5-0.9) 02/11/23 09:54 GFR Calculation 97.6 mL/min (90-130) 02/11/23 09:54 Glucose 110 mg/dL (65-115) 02/11/23 09:54 Calculated Osmolality 279 mOsm/kg (285-295) L 02/11/23 09:54 Calcium 10.5 mg/dL (8.5-10.5) 02/11/23 09:54 Total Bilirubin 0.3 mg/dL (0.15-1.2) 02/11/23 09:54 AST 24 U/L (0-32) 02/11/23 09:54 ALT 32 U/L (0-33) 02/11/23 09:54 Alkaline Phosphatase 61 U/L (35-105) 02/11/23 09:54 Total Protein 8.4 g/dL (6.6-8.7) 02/11/23 09:54 Albumin 4.6 g/dL (3.5-5.2) 02/11/23 09:54 Globulin 3.8 g/dL (1.3-4.6) 02/11/23 09:54 HCG, Qual Negative (Negative) 02/11/23 09:54 Urine Color Yellow (Yellow) 02/11/23 10:30 Urine Appearance Sl hazy (CLEAR) A 02/11/23 10:30 Urine pH 5 (5-7) 02/11/23 10:30 Ur Specific [place] 1.025 (1.005-1.030) 02/11/23 10:30 Urine Protein Neg (Negative) 02/11/23 10:30 Urine Glucose (UA) Norm (Normal) 02/11/23 10:30 Urine Ketones Negative (Negative) 02/11/23 10:30 Urine Blood 2+ (Negative) H 02/11/23 10:30 Urine Nitrate Negative (Negative) 02/11/23 10:30 Urine Bilirubin Neg (Negative) 02/11/23 10:30 Urine Urobilinogen Norm mg/dL (Negative) 02/11/23 10:30 Ur Leukocyte Esterase Negative (Negative) 02/11/23 10:30 Urine RBC 0-4 /hpf (0-2) H 02/11/23 10:30 Urine WBC 5-10 /hpf (0-5) H 02/11/23 10:30 Ur Squamous Epith Cells 15-25 /hpf (0-5) H 02/11/23 10:30 Amorphous Sediment Not Reportable 02/11/23 10:30 Urine Bacteria 2+ /hpf (NONE) H 02/11/23 10:30 Vitals Last Vital Signs Temp 97.9 F 02/11/23 09:14 Pulse 100 02/11/23 14:26 Resp 16 02/11/23 14:26 BP 179/126 02/11/23 14:26 Pulse Ox 99 02/11/23 14:26 O2 Del Method Room Air 02/11/23 14:26 Discharge Plan Discharge Patient Disposition: Home Condition: Stable Prescriptions: New hydrocodone-acetaminophen 5-325 mg tablet 1 tab PO Q4H Qty: 30 0RF Continued promethazine-DM 6.25-15 mg/5 mL syrup 5 ml PO Q6H PRN (Reason: cough) Qty: 473 0RF medroxyprogesterone [Provera] 10 mg tablet 10 mg PO DAILY Qty: 30 5RF Rx Instructions: Take - of month. NOT STARTED OF 02/01/23 naproxen sodium [Aleve] 220 mg Tablet 440 - 880 mg PO DAILY PRN (Reason: Pain) spironolactone 100 mg tablet 100 mg PO QAM lisinopril 10 mg tablet 10 mg PO QAM metformin 500 mg tablet extended release 24 hr See Rx Instructions .ROUTE .COMPLEX Rx Instructions: Take one tab (500mg) daily, then increase to 2 tabs (1,000mg) daily after 30 days Combivent Respimat 20-100 mcg/actuation mist 1 puff inhalation QID PRN (Reason: Shortness Of Breath) hydrocodone-acetaminophen 5-325 mg tablet 1 tab PO Q6H PRN (Reason: pain) Qty: 20 0RF ondansetron HCl 4 mg tablet 4 mg PO Q6H PRN (Reason: nausea and vomiting) Qty: 20 0RF Referrals: Emely Rivera FNP [Primary Care Provider] - Patient Instructions: Opioid Safety Discharge Attestations Time Spent in Discharge Care*: less than 30 min Quality Metrics Clinical Quality Measures [ No reported AMI, CVA or VTE this stay] Coding Level of Care Code Acute Code for Chg Fwd Diagnoses Ovarian torsion N83.519
--- NOTE | 2023-02-11 17:46 | ANE.PACU2 ---
Inpatient post-anesthesia follow up: Airway intact: Yes Vital signs: Temperature 98.1 F Pulse Rate 90 Respiratory Rate 17 Blood Pressure 133/83 Pulse Oximetry 95 Oxygen Delivery Me thod Room Air Oxygen Flow Rate 6 Fraction of Inspir ed Oxygen Hydration adequate: Yes Nausea and vomiting: No Pain level: 3 Mental status: Baseline
[2023-02-11] MEDS: HYDROcodone-acetaminophen 5-325 mg Tablet 2 TAB PO (18:56)
== END 2023-02-11 19:37 | disposition home or self-care (01) ==
LOC: ER 10:27 → OBGYN 13:29
PROVIDERS: Obstetrics & Gynecology; Admitting Provider Obstetrics & Gynecology; Emergency Provider Family Medicine; PCP Nurse Practitioner; Visit Provider Obstetrics & Gynecology
PROC: (CPT 58661; principal; 2023-02-11 14:55)
DX: N83.512 Torsion of left ovary and ovarian pedicle (principal); J45.909 Unspecified asthma, uncomplicated; I10 Essential (primary) hypertension; E28.2 Polycystic ovarian syndrome; E66.01 Morbid (severe) obesity due to excess calories; Z68.43 Body mass index [BMI] 50.0-59.9, adult; Z79.891 Long term (current) use of opiate analgesic; Z79.84 Long term (current) use of oral hypoglycemic drugs
CPT/HCPCS: 58661; 76830; 80053; 81001; 84703; 85025; 87086; 88305; 96374; 96375; 96376; 99285; G0378; J0131; J0690; J1100; J1200; J2250; J2270; J2405; J2704; J3010; J3490; J7030

== ENCOUNTER → 2023-06-18 14:48 | Outpatient (BNVA) | payer BC, MEDICAID, SELFPAY | PROVIDERS: PCP Nurse Practitioner; Visit Provider Nurse Practitioner Family | DX: R30.0 Dysuria (principal) | CPT/HCPCS: 81000 ==

== ENCOUNTER → 2023-06-26 10:44 | Outpatient (BNVA) | payer BC, MEDICAID, SELFPAY | PROVIDERS: PCP Nurse Practitioner; Visit Provider Nurse Practitioner Family | DX: N39.0 Urinary tract infection, site not specified (principal) | CPT/HCPCS: 81003 ==